=== PATIENT | female | born 1940 | race Caucasian/White ===

== ENCOUNTER 2016-11-22 11:52 | Inpatient (IN) | payer OTHER ==
[2016-11-22 12:07] VITALS: BMI 23.4
[2016-11-22 12:21] LABS: BASO # 0.1 K/uL (0.0-0.2); BASO % 0.7 % (0.0-2.0); EOS # 0.4 K/uL (0.0-0.7); EOS % 3.2 % (0.0-4.0); HEMATOCRIT 41.4 % (34.0-47.0); LYMPH # 2.1 K/uL (1.0-4.3); LYMPH % 18.1 % (20.0-40.0); MEAN CELL VOLUME 92.4 fL (81.0-99.0); MEAN CORPUSCULAR HEMOGLOBIN 30.8 pg (27.0-31.0); MEAN CORPUSCULAR HGB CONC 33.3 g/dL (33.0-37.0); MONO # 0.6 K/uL (0.0-0.8); MONO % 5.6 % (0.0-10.0); NRBC % 0.1 % (0.0-2.0); WHITE BLOOD COUNT 11.5 K/uL (4.8-10.8)
[2016-11-22 12:30] LABS: CHLORIDE 100 mmol/L (98-107); SODIUM 139 mmol/L (132-148)
[2016-11-22 12:30] LABS: RBC URINE 1 /hpf (0-3); URINE BACTERIA RARE (<OCC); URINE BILIRUBIN NEGATIVE (NEGATIVE); URINE BLOOD 1+ (NEGATIVE); URINE COLOR Colorless (YELLOW); URINE GLUCOSE (UA) NORMAL (Normal); URINE KETONE NEGATIVE (NEGATIVE); URINE LEUKOCYTE ESTERASE NEG Leu/uL (Negative); URINE PROTEIN NEGATIVE (NEGATIVE); URINE UROBILINOGEN NORMAL mg/dL (0.2-1.0); WBC URINE 1 /hpf (0-5)
[2016-11-22 12:32] LABS: ALKALINE PHOSPHATASE 63 U/L (38-126); AST/SGOT 32 U/L (14-36); BILIRUBIN,TOTAL 0.5 mg/dL (0.2-1.3); CARBON DIOXIDE 20 mmol/L (22-30); GFR AFRICAN-AMERICAN > 60; TOTAL PROTEIN 8.7 g/dL (6.3-8.3)
[2016-11-22 12:33] LABS: ALT/SGPT 23 U/L (9-52); BLOOD UREA NITROGEN 14 mg/dL (7-17); CALCIUM 9.2 mg/dl (8.6-10.4); GLUCOSE,RANDOM 145 mg/dL (65-105)
--- NOTE | 2016-11-22 12:38 | C.PDOC ---
History Of Present Illness 76-year-old female, presents to the emergency department with complaints of weakness. Patient states she woke up with weakness to her right arm and right leg this morning. Last known well was last night when she went to bed. Patient notes that she her "leg was dragging while walking" and had difficulty washing her face. States her symptoms lasted about fifteen minutes and resolved spontaneously. Patient denies any current weakness. No numbness, nausea/vomiting , dizziness, headache, speech changes, visual changes, or any other associated symptoms. No other complaints at this time. Time Seen by Provider: 11/22/16 12:05 Chief Complaint (Nursing): Weakness/Neurological Deficit History Per: Patient History/Exam Limitations: no limitations Onset/Duration Of Symptoms: Hrs Current Symptoms Are (Timing): Better Past Medical History Reviewed: Historical Data, Nursing Documentation, Vital Signs Vital Signs: Last Vital Signs Temp 98.1 F 11/23/16 07:05 Pulse 73 11/23/16 07:30 Resp 17 11/23/16 07:05 BP 139/78 11/23/16 10:17 Pulse Ox 100 11/23/16 11:47 - Medical History PMH: Hyperlipidemia Family History: States: Unknown Family Hx - Social History Hx Alcohol Use: No Hx Substance Use: No - Immunization History Hx Tetanus Toxoid Vaccination: No Hx Influenza Vaccination: No Hx Pneumococcal Vaccination: No Review Of Systems Except As Marked, All Systems Reviewed And Found Negative. Constitutional: Negative for: Fever, Chills Cardiovascular: Negative for: Chest Pain Gastrointestinal: Negative for: Nausea, Vomiting Neurological: Positive for: Weakness (RIGHT UPPER/LOWER EXT). Negative for: Numbness, Headache, Dizziness Physical Exam - Physical Exam Appears: Non-toxic, No Acute Distress Skin: Warm, Dry, No Rash Head: Atraumatic, Normacephalic Eye(s): bilateral: Normal Inspection, PERRL, EOMI Nose: Normal Oral Mucosa: Moist Lips: Normal Appearing Neck: Normal ROM Chest: Symmetrical Cardiovascular: Rhythm Regular Respiratory: Normal Breath Sounds, No Accessory Muscle Use Gastrointestinal/Abdominal: Soft, No Tenderness Extremity: Normal ROM Neurological/Psych: Oriented x3, Normal Speech, Other (No focal deficits) ED Course And Treatment - Laboratory Results Result Diagrams: 11/23/16 07:21 11/23/16 07:21 ECG: Interpreted By Me, Viewed By Me ECG Rhythm: Sinus Rhythm ECG Interpretation: No Acute Changes Interpretation Of ECG: LAD. LVH w/ REPOLARIZATION ABNORMALITY Rate From EC O2 Sat by Pulse Oximetry: 100 - Radiology CXR: Viewed By Me, Read By Radiologist CXR Interpretation: Yes: No Acute Disease - CT Scan/US CT HEAD Other Rad Studies (CT/US): Read By Radiologist, Radiology Report Reviewed CT/US Interpretation: Accession No. : [id number]. Patient Name / ID : HARI SANTO R / [id number]. Exam Date : 11/22/2016 12:39:42 ( Approved ). Study Comment : Sex / Age : F / 76Y. Creator : Linda Frances MD. Dictator : Linda Frances MD. Sales And Marketing Director : Dump Attendant : Linda Frances MD. Approver2 : Report Date : 11/22/2016 13:17:01. My Comment : . PROCEDURE: CT HEAD WITHOUT CONTRAST. HISTORY: weakness. COMPARISON: None available. TECHNIQUE : Axial computed tomography images were obtained through the head/brain without intravenous contrast. Radiation dose: Total exam DLP = 811.56 mGy-cm. FINDINGS: HEMORRHAGE: No intracranial hemorrhage. BRAIN: No mass effect or edema.No CT evidence of acute territorial infarct. Mild volume loss, likely age related. Patchy and confluent hypodensities throughout the bilateral cerebral hemispheric white matter are most likely from chronic small vessel ischemic changes. VENTRICLES: Unremarkable. No hydrocephalus. CALVARIUM: Unremarkable. PARANASAL SINUSES: Mild mucosal thickening involving the ethmoid air cells and the frontal sinuses. MASTOID AIR CELLS: Unremarkable as visualized. No inflammatory changes. OTHER FINDINGS: None. IMPRESSION: No CT evidence of acute intracranial hemorrhage or acute territorial infarct. Acute infarction may be CT occult within first 24 hours. If a focal deficit persists, consider followup CT or MRI for further evaluation. Other findings as above. NIHSS Stroke Scale - Date/Time Evaluation Performed Date Performed: 11/22/16 Time Performed: 12:00 - How Severe is the Stoke Level of Consciousness: 0=Alert LOC to Questions: 0=Both comments correct LOC to commands: 0=Obeys both correctly Best Gaze: 0=Normal Visual: 0=No visual loss Facial: 0=Normal Motor Arm - Left: 0=No drift Motor Arm - Right: 0=No drift Motor Leg - Left: 0=No drift Motor Leg - Right: 0=No drift Limb Ataxia: 0=Absent Sensory: 0=Normal Best Language: 0=No aphasia Dysarthia: 0=Normal articulation Extinction & Inattention (Neglect): 0=Normal, no object Score: 0 Severity Of Stroke: 0= No Stroke rTPA Inclusion/Exclusion - Inclusion Criteria for Altepase Patient is 18 years or Older: Yes The Clinical Diagnosis of Ischemic Stroke That is Causing a Potentially Disabling Neurological Deficit: No Time of Onset is Well Established to be Less Than 270 Minute Before Treatment Would Begin: No Risk/Benefit Discussed With Patient/Family Member Present: No Disposition - Disposition Disposition: HOSPITALIZED Disposition Time: 13:47 Condition: STABLE - Clinical Impression Clinical Impression: TIA (transient ischemic attack) - Scribe Statement The provider has reviewed the documentation as recorded by the Scribe Adilson Santiago All medical record entries made by the Wayneibe were at my direction and personally dictated by me. I have reviewed the chart and agree that the record accurately reflects my personal performance of the history, physical exam, medical decision making, and the department course for this patient. I have also personally directed, reviewed, and agree with the discharge instructions and disposition.
--- NOTE | 2016-11-22 13:12 | RAD ---
HISTORY: weakness COMPARISON: No prior. FINDINGS: LUNGS: No focal airspace opacity. PLEURA: No significant pleural effusion identified, no pneumothorax apparent.Biapical pleural parenchymal thickening noted. CARDIOVASCULAR: Normal. OSSEOUS STRUCTURES: The osseous structures demonstrate degenerative changes. VISUALIZED UPPER ABDOMEN: Upper abdomen is suboptimally evaluated. OTHER FINDINGS: Midline sternotomy wires and surgical clips along the left heart border noted. IMPRESSION: No focal airspace opacity. Please note that chest radiographs have low sensitivity for small pulmonary nodules. If indicated, chest CT should be obtained.
--- NOTE | 2016-11-22 13:18 | CT ---
PROCEDURE: CT HEAD WITHOUT CONTRAST. HISTORY: weakness COMPARISON: None available. TECHNIQUE: Axial computed tomography images were obtained through the head/brain without intravenous contrast. Radiation dose: Total exam DLP = 811.56 mGy-cm. FINDINGS: HEMORRHAGE: No intracranial hemorrhage. BRAIN: No mass effect or edema.No CT evidence of acute territorial infarct. Mild volume loss, likely age related. Patchy and confluent hypodensities throughout the bilateral cerebral hemispheric white matter are most likely from chronic small vessel ischemic changes. VENTRICLES: Unremarkable. No hydrocephalus. CALVARIUM: Unremarkable. PARANASAL SINUSES: Mild mucosal thickening involving the ethmoid air cells and the frontal sinuses. MASTOID AIR CELLS: Unremarkable as visualized. No inflammatory changes. OTHER FINDINGS: None. IMPRESSION: No CT evidence of acute intracranial hemorrhage or acute territorial infarct. Acute infarction may be CT occult within first 24 hours. If a focal deficit persists, consider followup CT or MRI for further evaluation. Other findings as above.
--- NOTE | 2016-11-22 15:22 | CP.PCM.HP ---
History of Present Illness - History of Present Illness History of Present Illness: CC: Weakness since this AM HPI: This is a 76 y/o F with PMH significant for CAD s/p CABG (1 year ago), HTN and HLD that presented to the ED with a chief complaint of weakness to her right upper and lower extremity since she woke up this morning. Pt states that she was feeling well the night before and went to sleep asymptomatic. She reports that she noticed the weakness when she began to drag her right foot when trying to walk and she was not able to wash her face. The total time of being symptomatic was around 15 minutes and then just resolved spontaneously. Pt states that this has never happened before. During evaluation, pt denied any weakness, numbness, tingling, headache, fevers, chills, chest pain, palpitations , sob, nausea or vomiting. PMD: Quick PMH: as per HPI PSH: CABG (1 year ago) Home meds: Metoprolol succinate Allergies: NKA FH: Denies SH: Denies tobacco, Etoh or drug use. Present on Admission - Present on Admission Any Indicators Present on Admission: No Review of Systems - Constitutional Constitutional: absent: Chills, Fever - EENT Eyes: absent: Blurred Vision, Pain Ears: absent: Decreased Hearing - Cardiovascular Cardiovascular: absent: Chest Pain, Palpitations - Respiratory Respiratory: absent: Cough, Dyspnea - Gastrointestinal Gastrointestinal: absent: Diarrhea, Nausea, Vomiting - Musculoskeletal Musculoskeletal: absent: Muscle Weakness, Stiffness - Integumentary Integumentary: absent: Pruritus, Rash - Neurological Neurological: absent: Abnormal Gait, Confusion, Dizziness, Numbness, Focal Weakness, Headaches, Memory Loss, Tingling, Weakness Past Patient History - Past Social History Smoking Status: Never Smoked - PSYCHIATRIC Hx Substance Use: No - SURGICAL HISTORY Hx Surgeries: Yes Other/Comment: Open heart surgery, coronary bypass x 3 - ANESTHESIA Hx Anesthesia: Yes Hx Anesthesia Reactions: No Meds Allergies/Adverse Reactions: Allergies Allergy/AdvReac Type Severity Reaction Status Date / Time No Known Allergies Allergy Verified 11/22/16 12:06 Physical Exam - Constitutional Appears: Non-toxic, No Acute Distress - Head Exam Head Exam: ATRAUMATIC, NORMOCEPHALIC - Eye Exam Eye Exam: Normal appearance Pupil Exam: PERRL - ENT Exam ENT Exam: Mucous Membranes Moist - Respiratory Exam Respiratory Exam: Clear to Auscultation Bilateral, NORMAL BREATHING PATTERN - Cardiovascular Exam Cardiovascular Exam: +S1, +S2 - GI/Abdominal Exam GI & Abdominal Exam: Normal Bowel Sounds, Soft - Extremities Exam Extremities exam: Positive for: normal capillary refill, normal inspection - Neurological Exam Neurological exam: Abnormal Gait, Alert, CN II-XII Intact, Oriented x3 Additional comments: There are no focal neurological defects appreciated, however, pt appears to have an unsteady gait which reports is new. She states "something just doesnt feel right" when attempting to walk. - Skin Skin Exam: Dry, Warm Results - Vital Signs Recent Vital Signs: Last Vital Signs Temp 97.9 F 11/22/16 13:08 Pulse 74 11/22/16 13:08 Resp 18 11/22/16 13:08 BP 170/88 H 11/22/16 13:08 Pulse Ox 97 11/22/16 13:08 - Labs Result Diagrams: 11/22/16 12:18 11/22/16 12:18 Labs: Laboratory Results - last 24 hr 11/22/16 11/22/16 12:18 12:21 WBC 11.5 H RBC 4.48 Hgb 13.8 Hct 41.4 MCV 92.4 MCH 30.8 MCHC 33.3 RDW 13.0 Plt Count 221 MPV 10.0 Neut % (Auto) 72.4 Lymph % (Auto) 18.1 L [place] % (Auto) 5.6 Eos % (Auto) 3.2 Baso % (Auto) 0.7 Neut # 8.3 H Lymph # 2.1 [place] # 0.6 Eos # 0.4 Baso # 0.1 Sodium 139 Potassium 4.0 Chloride 100 Carbon Dioxide 20 L Anion Gap 23 H BUN 14 Creatinine 0.5 L Est GFR ( Amer) > 60 Est GFR (Non-Af Amer) > 60 Random Glucose 145 H Calcium 9.2 Total Bilirubin 0.5 AST 32 ALT 23 Alkaline Phosphatase 63 Total Protein 8.7 H Albumin 4.4 Globulin 4.3 H Albumin/Globulin Ratio 1.0 Urine Color Colorless Urine Clarity Clear Urine pH 5.0 Ur Specific [place] 1.003 Urine Protein Negative Urine Glucose (UA) Normal Urine Ketones Negative Urine Blood 1+ H Urine Nitrate Negative Urine Bilirubin Negative Urine Urobilinogen Normal Ur Leukocyte Esterase Neg Urine WBC (Auto) 1 Urine RBC (Auto) 1 Urine Bacteria Rare Assessment & Plan - Assessment and Plan (Free Text) Assessment: Right sided weakness - Now resolved - likely TIA - No focal neurological defects - however, still with unsteady gait - CT head 11/22 - no acute bleed, normal exam - CXR 11/22 - no active disease - EKG 11/22 - NSR at 76, no afib - Ordered Echo - f/u - Ordered Carotid US - f/u - Cardiology consult (Suresh) - help appreciated - Neurology consult (Tala Linda) - help appreciated - Start ASA, Plavix and crestor - Labs: lipid panel, thyroid panel, A1C, serial troponins - f/u in AM - PT/OT treat and eval Hx of CAD - s/p CABG - ASA, Plavix, Crestor Hx of HTN - Continue home med Metoprolol succ - Add Enalapril - Monitor and adjust as necessary Hx of HLD - Lipid panel, f/u - Crestor PPX - Lovenox - Protonix
--- NOTE | 2016-11-22 22:14 | CP.PCM.CON ---
History of Present Illness - History of Present Illness History of Present Illness: Reason For Consultation TIA HPI: This is a 76 y/o F with PMH significant for CAD s/p CABG (1 year ago), HTN and HLD that presented to the ED with a chief complaint of weakness to her right upper and lower extremity since she woke up this morning. Pt states that she was feeling well the night before and went to sleep asymptomatic. She reports that she noticed the weakness when she began to drag her right foot when trying to walk and she was not able to wash her face. The total time of being symptomatic was around 15 minutes and then just resolved spontaneously. Pt states that this has never happened before. During evaluation, pt denied any weakness, numbness, tingling, headache, fevers, chills, chest pain, palpitations , sob, nausea or vomiting. PMD: Quick PMH: as per HPI PSH: CABG (1 year ago) Home meds: Metoprolol succinate Allergies: NKA FH: Denies SH: Denies tobacco, Etoh or drug use. Present on Admission - Present on Admission Any Indicators Present on Admission: No Review of Systems - Constitutional Constitutional: absent: Chills, Fever - EENT Eyes: absent: Blurred Vision, Pain Ears: absent: Decreased Hearing - Cardiovascular Cardiovascular: absent: Chest Pain, Palpitations - Respiratory Respiratory: absent: Cough, Dyspnea - Gastrointestinal Gastrointestinal: absent: Diarrhea, Nausea, Vomiting - Musculoskeletal Musculoskeletal: absent: Muscle Weakness, Stiffness - Integumentary Integumentary: absent: Pruritus, Rash - Neurological Neurological: absent: Abnormal Gait, Confusion, Dizziness, Numbness, Focal Weakness, Headaches, Memory Loss, Tingling, Weakness Meds Allergies/Adverse Reactions: Allergies Allergy/AdvReac Type Severity Reaction Status Date / Time No Known Allergies Allergy Verified 11/22/16 12:06 Physical Exam - Constitutional Appears: Non-toxic, No Acute Distress - Head Exam Head Exam: ATRAUMATIC, NORMOCEPHALIC - Eye Exam Eye Exam: Normal appearance Pupil Exam: PERRL - ENT Exam ENT Exam: Mucous Membranes Moist - Respiratory Exam Respiratory Exam: Clear to Auscultation Bilateral, NORMAL BREATHING PATTERN - Cardiovascular Exam Cardiovascular Exam: +S1, +S2 - GI/Abdominal Exam GI & Abdominal Exam: Normal Bowel Sounds, Soft - Extremities Exam Extremities exam: Positive for: normal capillary refill, normal inspection - Neurological Exam Neurological exam: Abnormal Gait, Alert, CN II-XII Intact, Oriented x3 Additional comments: There are no focal neurological defects appreciated, however, pt appears to have an unsteady gait which reports is new. She states "something just doesnt feel right" when attempting to walk. - Skin Skin Exam: Dry, Warm Results Past Patient History - Past Medical History & Family History Past Medical History?: Yes - Past Social History Smoking Status: Never Smoked - CARDIAC Hx Cardiac Disorders: Yes Hx Hypercholesterolemia: Yes Hx Hypertension: Yes Other/Comment: CAD - PULMONARY Hx Respiratory Disorders: No - NEUROLOGICAL Hx Neurological Disorder: No - HEENT Hx HEENT Problems: No - RENAL Hx Chronic Kidney Disease: No - ENDOCRINE/METABOLIC Hx Endocrine Disorders: No - HEMATOLOGICAL/ONCOLOGICAL Hx Blood Disorders: No - INTEGUMENTARY Hx Dermatological Problems: No - MUSCULOSKELETAL/RHEUMATOLOGICAL Hx Musculoskeletal Disorders: No Hx Falls: No - GASTROINTESTINAL Hx Gastrointestinal Disorders: No - GENITOURINARY/GYNECOLOGICAL Hx Genitourinary Disorders: No - PSYCHIATRIC Hx Substance Use: No - SURGICAL HISTORY Hx Surgeries: Yes Hx Coronary Artery Bypass Graft: Yes Other/Comment: Open heart surgery, coronary bypass x 3 - ANESTHESIA Hx Anesthesia: Yes Hx Anesthesia Reactions: No Hx Malignant Hyperthermia: No Has any member of the family had a problem w/ anesthesia?: No Meds Allergies/Adverse Reactions: Allergies Allergy/AdvReac Type Severity Reaction Status Date / Time Penicillins Allergy RASH Verified 11/22/16 20:44 - Medications Medications: Current Medications Aspirin (Aspirin Chewable) 81 mg PO DAILY [facility] Last Admin: 11/22/16 17:01 Dose: 81 mg Clopidogrel Bisulfate (Plavix) 75 mg PO DAILY [facility] Last Admin: 11/22/16 17:01 Dose: 75 mg Enalapril Maleate (Vasotec) 5 mg PO DAILY [facility] Enoxaparin Sodium (Lovenox) 40 mg SC DAILY [facility] Metoprolol Succinate (Toprol Xl) 25 mg PO DAILY [facility] Pantoprazole Sodium (Protonix Ec Tab) 40 mg PO DAILY [facility] Rosuvastatin Calcium (Crestor) 10 mg PO [facility] Last Admin: 11/22/16 21:48 Dose: 10 mg Results - Vital Signs Recent Vital Signs: Last Vital Signs Temp 98.1 F 11/22/16 19:04 Pulse 93 H 11/22/16 19:04 Resp 20 11/22/16 19:04 BP 179/77 H 11/22/16 19:04 Pulse Ox 97 11/22/16 19:04 - Labs Result Diagrams: 11/22/16 12:18 11/22/16 12:18 Labs: Laboratory Results - last 24 hr 11/22/16 17:28 Total Creatine Kinase 106 CK-MB (Mass) 1.93 Troponin I, Quant < 0.0120 Assessment & Plan - Assessment and Plan (Free Text) Assessment: Right sided weakness TIA Check ECHO and Carotid doppler Hx of CAD - s/p CABG - ASA, Plavix, Crestor Hx of HTN - Continue home med Metoprolol succ - Add Enalapril - Monitor and adjust as necessary Hx of HLD - Lipid panel, f/u - Crestor PPX - Lovenox - Protonix
[2016-11-23 07:31] LABS: BASO # 0.1 K/uL (0.0-0.2); BASO % 0.8 % (0.0-2.0); EOS # 0.3 K/uL (0.0-0.7); EOS % 4.3 % (0.0-4.0); LYMPH # 1.7 K/uL (1.0-4.3); LYMPH % 21.5 % (20.0-40.0); MEAN CELL VOLUME 92.7 fL (81.0-99.0); MEAN CORPUSCULAR HEMOGLOBIN 30.7 pg (27.0-31.0); MEAN CORPUSCULAR HGB CONC 33.1 g/dL (33.0-37.0); MEAN PLATELET VOLUME 10.3 fL (7.2-11.7); MONO # 0.7 K/uL (0.0-0.8); RED CELL DISTRIBUTION WIDTH 13.3 % (11.5-14.5); WHITE BLOOD COUNT 8.1 K/uL (4.8-10.8)
[2016-11-23 07:47] LABS: CHLORIDE 98 mmol/L (98-107)
[2016-11-23 07:48] LABS: POTASSIUM 3.8 mmol/L (3.6-5.2); SODIUM 138 mmol/L (132-148)
[2016-11-23 07:49] LABS: CHOLESTEROL 283 mg/dL (0-199)
[2016-11-23 07:50] LABS: ALB/GLOB RATIO 1.1 (1.0-2.1); ALKALINE PHOSPHATASE 52 U/L (38-126); ALT/SGPT 21 U/L (9-52); AST/SGOT 25 U/L (14-36); BLOOD UREA NITROGEN 13 mg/dL (7-17); CARBON DIOXIDE 23 mmol/L (22-30); GFR AFRICAN-AMERICAN > 60; GLUCOSE,RANDOM 126 mg/dL (65-105); TOTAL PROTEIN 7.9 g/dL (6.3-8.3)
[2016-11-23 07:51] LABS: CALCIUM 8.7 mg/dl (8.6-10.4)
[2016-11-23 08:06] LABS: T4 6.57 ug/dL (5.5-11.0)
[2016-11-23 08:19] LABS: THYROID STIMULATING HORMONE 3.38 mIU/L (0.46-4.68)
[2016-11-23] MEDS: Pantoprazole 40 mg EC Tab PO SCH (10:16)
[2016-11-23] MEDS: Enoxaparin 40 mg Syringe SC SCH (10:18)
[2016-11-23] MEDS: Metoprolol Succinate 25 mg XL Tab PO SCH (10:18)
--- NOTE | 2016-11-23 14:54 | CP.PCM.PN ---
Subjective - Date & Time of Evaluation Date of Evaluation: 11/23/16 Time of Evaluation: 14:45 - Subjective Subjective: PGY-[address] Quick's service Pt seen and examined at bedside. Pt overall is feeling well. She has some residual weakness on the right side. Denies any more episodes of focal neurological defects. Pt also denies any fevers, chills, vision changes, chest pain, sob, nausea or vomiting. Objective - Vital Signs/Intake and Output Vital Signs (last 24 hours): Temp Pulse Resp BP Pulse Ox 98.1 F 73 17 139/78 100 11/23/16 07:05 11/23/16 07:30 11/23/16 07:05 11/23/16 10:17 11/23/16 11:49 - Medications Medications: Current Medications Aspirin (Aspirin Chewable) 81 mg PO DAILY [facility] Last Admin: 11/23/16 10:16 Dose: 81 mg Clopidogrel Bisulfate (Plavix) 75 mg PO DAILY [facility] Last Admin: 11/23/16 10:16 Dose: 75 mg Enalapril Maleate (Vasotec) 5 mg PO DAILY [facility] Last Admin: 11/23/16 10:17 Dose: 5 mg Enoxaparin Sodium (Lovenox) 40 mg SC DAILY [facility] Last Admin: 11/23/16 10:18 Dose: 40 mg Metoprolol Succinate (Toprol Xl) 25 mg PO DAILY [facility] Last Admin: 11/23/16 10:18 Dose: 25 mg Pantoprazole Sodium (Protonix Ec Tab) 40 mg PO DAILY [facility] Last Admin: 11/23/16 10:16 Dose: 40 mg Rosuvastatin Calcium (Crestor) 10 mg PO HS [facility] Last Admin: 11/22/16 21:48 Dose: 10 mg - Labs Labs: 11/23/16 07:21 11/23/16 07:21 PT 11.4 SECONDS (9.7-12.2) 11/23/16 07:21 INR 1.0 11/23/16 07:21 APTT 28 SECONDS (21-34) 11/23/16 07:21 - Constitutional Appears: Non-toxic, No Acute Distress - Head Exam Head Exam: ATRAUMATIC, NORMOCEPHALIC - Eye Exam Eye Exam: Normal appearance Pupil Exam: PERRL - ENT Exam ENT Exam: Mucous Membranes Moist - Respiratory Exam Respiratory Exam: Clear to Ausculation Bilateral, NORMAL BREATHING PATTERN - Cardiovascular Exam Cardiovascular Exam: +S1, +S2 - GI/Abdominal Exam GI & Abdominal Exam: Soft, Normal Bowel Sounds - Neurological Exam Neurological Exam: Alert, Awake, CN II-XII Intact, Motor Sensory Deficit ( unsteady gait due to weakness on the right) Assessment and Plan - Assessment and Plan (Free Text) Assessment: Right sided weakness - Now resolved - likely TIA - No focal neurological defects - however, still with unsteady gait - CT head 11/22 - no acute bleed, normal exam - CXR 11/22 - no active disease - EKG 11/22 - NSR at 76, no afib - Ordered Echo - f/u - Ordered Carotid US - f/u - Ordered CT angio of the head - f/u - Cardiology consult (Suresh) - help appreciated - C/W current treatment - Neurology consult (Tala Linda) - help appreciated - Start ASA, Plavix and crestor - Lipids elevated - Troponins neg x 3 - A1C - f/u friday - Thyroid WNL - PT/OT treat and eval Hx of CAD - s/p CABG - ASA, Plavix, Crestor Hx of HTN - Continue home med Metoprolol succ - Add Enalapril - Monitor and adjust as necessary Hx of HLD - Lipid panel - elevated - Crestor PPX - Lovenox - Protonix
--- NOTE | 2016-11-23 16:33 | CON ---
DATE: 11/23/2016 CHIEF COMPLAINT: Right-sided weakness. HISTORY OF PRESENT ILLNESS: This is a 76-year-old woman with a past medical history of coronary rosalva ry disease, status post coronary artery bypass graft a year ago, history of hypertension and hyperlip idemia, presented to the Emergency Department with the chief complaint of weakness on her right side in terms of her right upper and lower extremities since she woke up the morning of 11/22/2016. She wa s feeling well the night before, but when she woke up she noted the weakness and she began to drag he r right foot. She denies any facial droop, no change in sense of vision, taste or smell. No headach es at this time. Upon my evaluation, she does have right-sided weakness and right pronator drift. H er CT head showed no acute intracranial abnormality. She will need an MRI of the brain. Her carotid Doppler showed mild bilateral carotid disease. Her triglycerides are 341, which is elevated and LDL is 143, which is elevated, and cholesterol 283, which is elevated. She is currently on aspirin 81 m g and Plavix 75 mg is on Crestor 10 mg p.o. at bedtime for dyslipidemia. PAST MEDICAL HISTORY: History of coronary artery disease, status CABG; hypertension, and dyslipidemi a. REVIEW OF SYSTEMS: A 14-point review of systems is negative except for the HPI. HOME MEDICATIONS: Metoprolol. ALLERGIES: No known drug allergies. FAMILY HISTORY: Noncontributory. SOCIAL HISTORY: No illicit drug use, smoking, or ETOH abuse. PHYSICAL EXAMINATION: VITAL SIGNS: Temperature 98.1, pulse rate 66, blood pressure 140/79, respiratory rate of 17, oxygen 97% on room air. GENERAL: The patient is sitting in the chair, in no acute distress. HEENT: Atraumatic, normocephalic. PERRLA. Extraocular muscles intact. NECK: Supple, no JVD, no adenopathy noted. LUNGS: Clear to auscultation. No adventitious sounds. HEART: S1, S2, normal rate and rhythm. No murmurs, rubs, or gallops. ABDOMEN: Soft, nontender, nondistended. Bowel sounds present. EXTREMITIES: No clubbing. NEUROLOGIC: The patient is alert, oriented to person, place and year. Recall after 5 minutes is 0/3 . Attention span and thought process is slow. Speech is slightly dysarthric, but no aphasia noted. Cranial nerves II through XII are intact. MOTOR: Has a right-sided pronator drift and right-sided weakness and left side is intact. SENSORY: Light touch, pinprick, proprioception, vibration is intact. DTRs are 2+ throughout, 1 at t he ankles. COORDINATION: [id number] intact on the left, but difficult on the right due to right-sided weakn ess. GAIT: Is deferred for now. LABORATORY DATA: Sodium is 138, potassium 3.8, chloride 198, carbon dioxide 21, BUN of 13, creatinin e 0.5, random glucose 126. Cholesterol is 283, which is elevated; triglycerides 341, which is elevat ed; LDL is 143, which is elevated and HDL is 44. ASSESSMENT AND PLAN: This is a 76-year-old woman with a history of coronary artery disease status po st coronary artery bypass graft in 2014, history of hypertension and dyslipidemia, who presented with right-sided weakness. She does have elevated triglycerides, elevated cholesterol and elevated LDL. 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 I would recommend: 1. For her to be on aspirin 81 mg and Plavix 75 mg for stroke prevention. 2. Continue with Crestor 10 mg p.o. daily or atorvastatin 80 mg for 21 days for dyslipidemia. 3. Recommend a low-fat, low-cholesterol diet given that she has elevated triglycerides and elevated cholesterol. 4. She will require an MRI of the brain to assess for the exact location of the infarction and will likely need physical and occupational therapy evaluations and will likely need acute rehabilitation. At this time, continue with current present medical management. No further neurological workup neede d at this time. Thank you for this consult. David Linda MD cc: [id number] TT: 11/23/2016 16:32:38 Confirmation # [id number] Dictation # [id number] ninfa
[2016-11-23 16:59] VITALS: RESP 20
--- NOTE | 2016-11-23 20:46 | CP.PCM.PN ---
Subjective - Date & Time of Evaluation Date of Evaluation: 11/23/16 Time of Evaluation: 15:00 - Subjective Subjective: Subjective Patient seen and evaluated Denies chest pain and dyspnea Physical Examination - Constitutional Appears: Non-toxic, No Acute Distress - Head Exam Head Exam: ATRAUMATIC, NORMOCEPHALIC - Eye Exam Eye Exam: Normal appearance Pupil Exam: PERRL - ENT Exam ENT Exam: Mucous Membranes Moist - Respiratory Exam Respiratory Exam: Clear to Ausculation Bilateral, NORMAL BREATHING PATTERN - Cardiovascular Exam Cardiovascular Exam: +S1, +S2 - GI/Abdominal Exam GI & Abdominal Exam: Soft, Normal Bowel Sounds - Neurological Exam Neurological Exam: Alert, Awake, CN II-XII Intact, Motor Sensory Deficit ( unsteady gait due to weakness on the right) Objective - Vital Signs/Intake and Output Vital Signs (last 24 hours): Temp Pulse Resp BP Pulse Ox 98.2 F 70 20 110/67 97 11/23/16 16:58 11/23/16 16:58 11/23/16 16:58 11/23/16 16:58 11/23/16 16:58 - Medications Medications: Current Medications Aspirin (Aspirin Chewable) 81 mg PO DAILY [facility] Last Admin: 11/23/16 10:16 Dose: 81 mg Clopidogrel Bisulfate (Plavix) 75 mg PO DAILY [facility] Last Admin: 11/23/16 10:16 Dose: 75 mg Enalapril Maleate (Vasotec) 5 mg PO DAILY [facility] Last Admin: 11/23/16 10:17 Dose: 5 mg Enoxaparin Sodium (Lovenox) 40 mg SC DAILY [facility] Last Admin: 11/23/16 10:18 Dose: 40 mg Metoprolol Succinate (Toprol Xl) 25 mg PO DAILY [facility] Last Admin: 11/23/16 10:18 Dose: 25 mg Pantoprazole Sodium (Protonix Ec Tab) 40 mg PO DAILY [facility] Last Admin: 11/23/16 10:16 Dose: 40 mg Rosuvastatin Calcium (Crestor) 10 mg PO [facility] Last Admin: 11/22/16 21:48 Dose: 10 mg - Labs Labs: 11/23/16 07:21 11/23/16 07:21 PT 11.4 SECONDS (9.7-12.2) 11/23/16 07:21 INR 1.0 11/23/16 07:21 APTT 28 SECONDS (21-34) 11/23/16 07:21 Assessment and Plan - Assessment and Plan (Free Text) Assessment: Right sided weakness Neuro Eval in progress Hx of CAD - s/p CABG - ASA, Plavix, Crestor Hx of HTN - Continue home med Metoprolol succ - Add Enalapril - Monitor and adjust as necessary Hx of HLD - Lipid panel - elevated - Crestor PPX - Lovenox - Protonix
[2016-11-24 00:28] VITALS: O2SAT 98
--- NOTE | 2016-11-24 06:45 | CARD ---
APPROVED REPORT EKG Measurement Heart [id number] <Conclusion> Normal sinus rhythm Possible Left atrial enlargement Left axis deviation Left ventricular hypertrophy with repolarization abnormality Cannot rule out Septal infarct, age undetermined Abnormal ECG
[2016-11-24 07:45] LABS: BASO # 0.1 K/uL (0.0-0.2); BASO % 0.8 % (0.0-2.0); EOS # 0.2 K/uL (0.0-0.7); EOS % 2.9 % (0.0-4.0); HEMATOCRIT 38.3 % (34.0-47.0); LYMPH # 2.1 K/uL (1.0-4.3); LYMPH % 27.8 % (20.0-40.0); MEAN CELL VOLUME 91.6 fL (81.0-99.0); MEAN CORPUSCULAR HEMOGLOBIN 31.5 pg (27.0-31.0); MEAN CORPUSCULAR HGB CONC 34.4 g/dL (33.0-37.0); MEAN PLATELET VOLUME 9.8 fL (7.2-11.7); MONO # 0.7 K/uL (0.0-0.8); MONO % 9.3 % (0.0-10.0); NRBC % 0.1 % (0.0-2.0); RED CELL DISTRIBUTION WIDTH 13.7 % (11.5-14.5); WHITE BLOOD COUNT 7.4 K/uL (4.8-10.8)
[2016-11-24 07:48] LABS: CHLORIDE 99 mmol/L (98-107)
[2016-11-24 07:49] LABS: POTASSIUM 4.1 mmol/L (3.6-5.2); SODIUM 137 mmol/L (132-148)
[2016-11-24 07:51] LABS: ALB/GLOB RATIO 1.1 (1.0-2.1); ALKALINE PHOSPHATASE 48 U/L (38-126); AST/SGOT 25 U/L (14-36); BLOOD UREA NITROGEN 15 mg/dL (7-17); CARBON DIOXIDE 25 mmol/L (22-30); GFR AFRICAN-AMERICAN > 60; GLUCOSE,RANDOM 123 mg/dL (65-105); TOTAL PROTEIN 7.6 g/dL (6.3-8.3)
[2016-11-24 07:52] LABS: ALT/SGPT 14 U/L (9-52); CALCIUM 8.6 mg/dl (8.6-10.4)
[2016-11-24] MEDS: Metoprolol Succinate 25 mg XL Tab PO SCH (09:22)
[2016-11-24] MEDS: Pantoprazole 40 mg EC Tab PO SCH (09:23)
[2016-11-24] MEDS: Enoxaparin 40 mg Syringe SC SCH (09:23)
[2016-11-24] MEDS ORDERED: Iodixanol 320 MG/ML 100 ML BOTTLE IV ONE (09:24)
[2016-11-24 15:52] VITALS: BP 144/78; PULSE 87; TEMP 98.8
--- NOTE | 2016-11-24 17:26 | CP.PCM.DIS ---
Provider - Provider Date of Admission: 11/24/16 08:21 Attending physician: Leonidas Quick Jr, MD Primary care physician: Ynes Consults: Cardio - Suresh Neuro - David Linda Time Spent in preparation of Discharge (in minutes): 31 Hospital Course - Lab Results Lab Results: Most Recent Lab Values WBC 7.4 K/uL (4.8-10.8) 11/24/16 07:09 RBC 4.18 Mil/uL (3.80-5.20) 11/24/16 07:09 Hgb 13.2 g/dL (11.0-16.0) 11/24/16 07:09 Hct 38.3 % (34.0-47.0) 11/24/16 07:09 MCV 91.6 fL (81.0-99.0) 11/24/16 07:09 MCH 31.5 pg (27.0-31.0) H 11/24/16 07:09 MCHC 34.4 g/dL (33.0-37.0) 11/24/16 07:09 RDW 13.7 % (11.5-14.5) 11/24/16 07:09 Plt Count 209 K/uL (130-400) 11/24/16 07:09 MPV 9.8 fL (7.2-11.7) 11/24/16 07:09 Neut % (Auto) 59.2 % (50.0-75.0) 11/24/16 07:09 Lymph % (Auto) 27.8 % (20.0-40.0) 11/24/16 07:09 [place] % (Auto) 9.3 % (0.0-10.0) 11/24/16 07:09 Eos % (Auto) 2.9 % (0.0-4.0) 11/24/16 07:09 Baso % (Auto) 0.8 % (0.0-2.0) 11/24/16 07:09 Neut # 4.4 K/uL (1.8-7.0) 11/24/16 07:09 Lymph # 2.1 K/uL (1.0-4.3) 11/24/16 07:09 Knox # 0.7 K/uL (0.0-0.8) 11/24/16 07:09 Eos # 0.2 K/uL (0.0-0.7) 11/24/16 07:09 Baso # 0.1 K/uL (0.0-0.2) 11/24/16 07:09 PT 11.4 SECONDS (9.7-12.2) 11/23/16 07:21 INR 1.0 11/23/16 07:21 APTT 28 SECONDS (21-34) 11/23/16 07:21 Sodium 137 mmol/L (132-148) 11/24/16 07:09 Potassium 4.1 mmol/L (3.6-5.2) 11/24/16 07:09 Chloride 99 mmol/L (98-107) 11/24/16 07:09 Carbon Dioxide 25 mmol/L (22-30) 11/24/16 07:09 Anion Gap 17 (10-20) 11/24/16 07:09 BUN 15 mg/dL (7-17) 11/24/16 07:09 Creatinine 0.6 MG/DL (0.7-1.2) L 11/24/16 07:09 Est GFR ( Amer) > 60 11/24/16 07:09 Est GFR (Non-Af Amer) > 60 11/24/16 07:09 Random Glucose 123 mg/dL (65-105) H 11/24/16 07:09 Calcium 8.6 mg/dl (8.6-10.4) 11/24/16 07:09 Total Bilirubin 1.0 mg/dL (0.2-1.3) 11/24/16 07:09 AST 25 U/L (14-36) 11/24/16 07:09 ALT 14 U/L (9-52) 11/24/16 07:09 Alkaline Phosphatase 48 U/L (38-126) 11/24/16 07:09 Total Creatine Kinase 95 U/L (30-135) 11/23/16 14:23 CK-MB (Mass) 2.13 ng/mL (0.0-3.38) 11/23/16 14:23 Troponin I, Quant < 0.0120 ng/mL (0.00-0.120) 11/23/16 14:23 Total Protein 7.6 g/dL (6.3-8.3) 11/24/16 07:09 Albumin 3.9 g/dL (3.5-5.0) 11/24/16 07:09 Globulin 3.7 gm/dL (2.2-3.9) 11/24/16 07:09 Albumin/Globulin Ratio 1.1 (1.0-2.1) 11/24/16 07:09 Triglycerides 341 mg/dL (0-149) H D 11/23/16 07:21 Cholesterol 283 mg/dL (0-199) H 11/23/16 07:21 LDL Cholesterol Direct 143 mg/dL (0-129) H 11/23/16 07:21 HDL Cholesterol 44 mg/dL (30-70) 11/23/16 07:21 Thyroxine (T4) 6.57 ug/dL (5.5-11.0) 11/23/16 07:21 TSH 3rd Generation 3.38 mIU/L (0.46-4.68) 11/23/16 07:21 Urine Color Colorless (YELLOW) 11/22/16 12:21 Urine Clarity Clear (Clear) 11/22/16 12:21 Urine pH 5.0 (5.0-8.0) 11/22/16 12:21 Ur Specific [place] 1.003 (1.003-1.030) 11/22/16 12:21 Urine Protein Negative mg/dL (NEGATIVE) 11/22/16 12:21 Urine Glucose (UA) Normal mg/dL (Normal) 11/22/16 12:21 Urine Ketones Negative mg/dL (NEGATIVE) 11/22/16 12:21 Urine Blood 1+ (NEGATIVE) H 11/22/16 12:21 Urine Nitrate Negative (NEGATIVE) 11/22/16 12:21 Urine Bilirubin Negative (NEGATIVE) 11/22/16 12:21 Urine Urobilinogen Normal mg/dL (0.2-1.0) 11/22/16 12:21 Ur Leukocyte Esterase Neg Kristopher/uL (Negative) 11/22/16 12:21 Urine WBC (Auto) 1 /hpf (0-5) 11/22/16 12:21 Urine RBC (Auto) 1 /hpf (0-3) 11/22/16 12:21 Urine Bacteria Rare (<OCC) 11/22/16 12:21 - Hospital Course Hospital Course: On hospital admission This is a 76 y/o F with PMH significant for CAD s/p CABG (1 year ago), HTN and HLD that presented to the ED with a chief complaint of weakness to her right upper and lower extremity since she woke up this morning. Pt states that she was feeling well the night before and went to sleep asymptomatic. She reports that she noticed the weakness when she began to drag her right foot when trying to walk and she was not able to wash her face. The total time of being symptomatic was around 15 minutes and then just resolved spontaneously. Pt states that this has never happened before. During evaluation, pt denied any weakness, numbness, tingling, headache, fevers, chills, chest pain, palpitations , sob, nausea or vomiting. On hospital course Pt was admitted for right sided weakness secondary to stroke vs TIA. Initial CT of the head was negative for bleed. Pt was taking ASA at home so plavix was added on as well. She continued to have some mild right sided deficits. Cardiology and neurology were both consulted. Carotid US and a CT angio of the head were ordered. Echocardiogram was ordered as well but never done. Pt remained stable and after completing the carotid US and CT angio of the head, was discharged in stable condition home, to follow up with Dr Quick in his office the following day. Per Dr Quick, echocardiogram would be completed outpatient and he would follow up on the official read of both the carotid US and CT angio of the head. Pt was discharged with the following new medications: Aspirin [Aspirin Chewable] 81 mg PO DAILY #30 chew Rosuvastatin Calcium [Crestor] 10 mg PO HS #30 tab Clopidogrel [Plavix] 75 mg PO DAILY #30 tab Enalapril Maleate [Vasotec] 5 mg PO DAILY #30 tab Diagnoses Right sided weakness TIA vs Stroke HTN This is a summary of hospital course, please see EMR for further details. - Date & Time of H&P Date of H&P: 11/22/16 Time of H&P: 15:09 Discharge Exam - Head Exam Head Exam: ATRAUMATIC, NORMOCEPHALIC - Eye Exam Eye Exam: Normal appearance Pupil Exam: PERRL - Respiratory Exam Respiratory Exam: Clear to PA & Lateral, UNREMARKABLE - Cardiovascular Exam Cardiovascular Exam: +S1, +S2 - GI/Abdominal Exam GI & Abdominal Exam: Normal Bowel Sounds, Unremarkable - Neurological Exam Neurological exam: Alert, CN II-XII Intact, Oriented x3 Additional comments: Slightly weaker in both the right upper and lower extremity - Skin Skin Exam: Dry, Warm Discharge Plan - Discharge Medications Prescriptions: Aspirin [Aspirin Chewable] 81 mg PO DAILY #30 chew Rosuvastatin Calcium [Crestor] 10 mg PO HS #30 tab Clopidogrel [Plavix] 75 mg PO DAILY #30 tab Enalapril Maleate [Vasotec] 5 mg PO DAILY #30 tab - Follow Up Plan Condition: STABLE Disposition: HOME/ ROUTINE Instructions: Transient Ischemic Attack (DC), Heart Healthy Diet (DC) Additional Instructions: You are medically stable for discharge. Follow up with Dr Quick in his office tomorrow. Begin taking the new prescriptions as directed. Also, resume your home medication of metoprolol. Referrals: Bebo Prince MD [Staff Provider] - David Linda MD [Staff Provider] -
--- NOTE | 2016-11-25 16:38 | VASCLAB ---
PROCEDURE: HISTORY: TIA COMPARISON: None available. TECHNIQUE: Grayscale and duplex Doppler evaluation of the cervical carotid and vertebral arteries were performed. The common carotid, carotid bifurcations and cervical Internal Carotid Artery (ICA) and proximal External Carotid Artery (ECA) were evaluated. The vertebral arteries were evaluated for gross patency and flow direction. Report prepared by USMAN GusmanT FINDINGS: RIGHT CAROTID ARTERIES: 1. Common Carotid Artery: Mild homogeneous plaque formation of the right CCA which does not result in hemodynamically significant stenosis. Moderate intimal hyperplasia. Maximum Peak Systolic velocity: 97.7 cm/sec: End-diastolic velocity 20.9 cm/sec. 2. Carotid Bifurcation: Scattered heterogeneous plaque formation. Maximum Peak Systolic velocity: 82.0 cm/sec: End-diastolic velocity 13.0 cm/sec. 3. Internal Carotid Artery: Mild heterogeneous 3.1. Proximal Segment: Peak systolic velocity 86.0 cm/sec: End-diastolic velocity 17.3 cm/sec - % stenosis 0-15% 3.2. Middle Segment: Peak systolic velocity 80.4 cm/sec: End-diastolic velocity 20.4 cm/sec - % stenosis 0-15% 3.3. Distal Segment: Peak systolic velocity 75.9 cm/sec: End-diastolic velocity 26.4 cm/sec - % stenosis 0-15% 4. External Carotid Artery: Scattered calcific plaque formation. Peak systolic velocity 107.3 cm/sec 5. ICA/CCA Ratio: 0.9 LEFT CAROTID ARTERIES: 1. Common Carotid Artery: Homogeneous plaque formation of the left common carotid artery. Moderate intimal hyperplasia. Maximum Peak Systolic velocity: 98.8 cm/sec: End-diastolic velocity 16.5 cm/sec. 2. Carotid Bifurcation: Heterogeneous and calcific plaque formation. Maximum Peak Systolic velocity: 107.5 cm/sec: End-diastolic velocity 18.9 cm/sec. 3. Internal Carotid Artery: Heterogeneous -calcific irregular plaque formation. Tortuous course. 3.1. Proximal Segment: Peak systolic velocity 143.2 cm/sec: End-diastolic velocity 26.9 cm/sec - % stenosis 16-49% 3.2. Middle Segment: Peak systolic velocity 156.7 cm/sec: End-diastolic velocity 32.7 cm/sec - % stenosis 16-49% 3.3. Distal Segment: Peak systolic velocity 79.0 cm/sec: End-diastolic velocity 23.3 cm/sec - % stenosis 16-49% 4. External Carotid Artery: No significant focal plaque formation. Peak systolic velocity 126.5 cm/sec 5. ICA/CCA Ratio: 1.7 VERTEBRAL ARTERIES: 1. Right Vertebral Artery: The right vertebral artery flow direction is antegrade. 2. Left Vertebral Artery: The left vertebral artery flow direction is antegrade. OTHER FINDINGS: 1. Right Brachial Blood pressure: Not optimally obtained. 2. Left Brachial Blood pressure: Not optimally obtained. IMPRESSION: No hemodynamically significant stenosis identified in the extracranial internal carotid arteries. Heterogeneous and calcific irregular plaque in the internal carotid arteries bilaterally. Moderate intimal hyperplasia in both common carotid arteries.
--- NOTE | 2016-11-25 23:01 | CARD ---
APPROVED REPORT EXAM: Two-dimensional and M-mode echocardiogram with Doppler and color Doppler. Other Information Quality : GoodRhythm : NSR INDICATION CVA/TIA Thrombus M-Mode DIMENSIONS Left Atrium (MM)3.74 (2.5-4.0cm)Aortic Root2.70 (2.2-3.7cm) Aortic Cusp Exc.1.46 (1.5-2.0cm) Aortic Valve AoV Peak Rkdjcpix179.6cm/Trini Peak GR.7mmHg Mitral Valve MV E Gjhyvlaj49.7cm/sMV A Ytwyuqhy628.4cm/sE/A ratio0.6 TDI E/Lateral E'0.0E/Medial E'0.0 Tricuspid Valve TR Peak [id number]/sTR Peak [id number] LEFT VENTRICLE The left ventricle is normal size. There is normal left ventricular wall thickness. Left ventricle systolic function is normal. The Ejection Fraction is >70%. There is normal LV segmental wall motion. Tissue Doppler imaging reveals abnormal left ventricular diastolic dysfunction. RIGHT VENTRICLE The right ventricle is normal size. There is normal right ventricular wall thickness. The right ventricular systolic function is normal. ATRIA The left atrium size is normal. The right atrium size is normal. The atrial septum is aneurysmal. AORTIC VALVE The aortic valve is normal in structure. No aortic regurgitation is present. There is no aortic valvular stenosis. There is no aortic valvular vegetation. MITRAL VALVE The mitral valve is normal in structure. There is no evidence of mitral valve prolapse. There is no mitral valve stenosis. Mitral regurgitation is mild. TRICUSPID VALVE The tricuspid valve is normal in structure. There is mild tricuspid regurgitation. Right ventricular systolic pressure is estimated at 30-40 mmHg. There is mild pulmonary hypertension. PULMONIC VALVE The pulmonic valve is not well visualized. There is mild pulmonic valvular regurgitation. GREAT VESSELS The aortic root is normal in size. PERICARDIAL EFFUSION There is no significant pericardial effusion. <Conclusion> Left ventricle systolic function is normal. The Ejection Fraction is >70%. Diastolic dysfunction. Aneurysmal atrial septum. No aortic regurgitation is present. Mitral regurgitation is mild. There is mild tricuspid regurgitation. There is mild pulmonary hypertension. There is mild pulmonic valvular regurgitation.
== END 2016-11-24 16:50 | disposition home or self-care (01) | DRG 69 ==
LOC: C.ER 11:52 → C.9E 13:47 → C.6T 17:14 → OBSVTOIN 11-24 08:21
PROVIDERS: ADMIT Internal Medicine; ATTEND Internal Medicine
DX: G45.9 Transient cerebral ischemic attack, unspecified (principal); G81.91 Hemiplegia, unspecified affecting right dominant side; I10 Essential (primary) hypertension; I25.10 Atherosclerotic heart disease of native coronary artery without angina pectoris; E78.5 Hyperlipidemia, unspecified; R26.81 Unsteadiness on feet; Z95.1 Presence of aortocoronary bypass graft; Z88.0 Allergy status to penicillin